=== PATIENT | male | born 1965 | race Caucasian/White ===

== ENCOUNTER 2021-09-21 12:26 | Emergency (ER) | payer OTHER ==
[~2021-09-21] VITALS: Ht 165.1 cm; Wt 68.9 kg
[2021-09-21 12:32] VITALS: BP 163/91
--- NOTE | 2021-09-21 12:41 | NUR ---
PATIENT AMBULATED WITH STEADY GAIT TO BED 11.
--- NOTE | 2021-09-21 13:41 | NUR ---
X-Ray at bedside
--- NOTE | 2021-09-21 13:46 | NUR ---
Obtained lab specimens, walked to lab. Handed to CPT. Verónica
--- NOTE | 2021-09-21 13:46 | NUR ---
Ultrasound at bedside.
[2021-09-21 13:50] LABS: LYMPHOCYTES # (AUTO) 0.9 K/uL (2.0-11.5); MEAN CORPUSCULAR HEMOGLOBIN 29 pg (27-31); MEAN CORPUSCULAR HGB CONC 32 g/dL (33-37); MONOCYTES # (AUTO) 0.4 K/uL (0.8-1.0); NEUTROPHILS # (AUTO) 2.1 K/uL (1.8-7.7); PLATELET COUNT (AUTO) 100 K/uL (140-450)
[2021-09-21 13:56] LABS: EOSINOPHILS % (AUTO) 1.2 % (0.0-4.0); HEMATOCRIT 34.3 % (36-52); HEMOGLOBIN 11.1 g/dL (12.0-18.0); LYMPHOCYTES % (AUTO) 25.7 % (20.5-51.1); MEAN CORPUSCULAR VOLUME 88.6 fL (80-94); MONOCYTES % (AUTO) 10.5 % (1.7-9.3); NEUTROPHILS % (AUTO) 61.6 % (42.2-75.2); RED BLOOD CELL COUNT(AUTO) 3.88 MIL/uL (4.20-6.10); RED CELL DISTRIBUTION WIDTH 15.3 % (11.6-13.7); WHITE BLOOD COUNT (AUTO) 3.5 K/uL (4.8-10.8)
[2021-09-21 14:13] LABS: ALBUMIN 3.6 g/dL (3.4-5.0); ANION GAP 9.6 (8-16); ASPARTATE AMINOTRANSFERASE 43 U/L (15-37); CARBON DIOXIDE 28.9 mmol/L (21-32); CHLORIDE 106 mmol/L (98-107); CREATININE 0.6 mg/dL (0.6-1.3); GFR ARICAN-AMERICAN 179 mL/min (>90); GLUCOSE 129 mg/dL (74-106); POTASSIUM 3.5 mmol/L (3.5-5.1); SODIUM SERUM 141 mmol/L (136-145); TOTAL BILIRUBIN 0.9 mg/dL (0.0-1.0); UREA NITROGEN, BLOOD 3 mg/dL (7-18)
--- NOTE | 2021-09-21 14:18 | NUR ---
56 y/o male bib self due to left thigh pain x 1 month. Patient describes pain as 10/10 with a stabbing feeling. Patient was refered to ER by his PCP due to high blood pressure and possible PE. Patient denies any SOB. Medical History: Denies NKDA
--- NOTE | 2021-09-21 14:35 | NUR ---
56/M PRESENTS TO ED WITH C/O BILATERAL LEG PAIN AND SWELLING X2 MONTHS. PATIENT STATES HE WAS SEEN BY HIS PCP TODAY AND STATES HE WAS REFERRED TO ED DUE TO HIS BP READING HIGH AND CONCERN FOR POSSIBLE PE. PATIENT C/O LEFT UPPER LEG PAIN UPON ASSESSMENT, DENIES CP, SOB, BP IN TRIAGE 163/91. NO SWELLING, REDNESS OR TENDERNESS NOTED TO BILATERAL LEGS, PATIENT AMBULATORY UPON ARRIVAL TO ED.
[2021-09-21] MEDS ORDERED: NAPR-54 PO (14:46)
--- NOTE | 2021-09-21 16:55 | NUR ---
Patient discharged with v/s stable. Written and verbal after care instructions given. Patient alert, oriented and verbalized understanding of instructions. Ambulatory with steady gait. All questions addressed prior to discharge. ID band removed. Patient advised to follow up with PMD. Rx of Naproxen given. Opportunity to ask questions provided and answered. Work note handed to patient.
--- NOTE | 2021-09-21 16:56 | NUR ---
The patient's care was reviewed and supervised by Nevin Villegas RN.
== END 2021-09-21 16:55 | disposition home or self-care (01) ==
LOC: MED 12:26
DX: M79.605 Pain in left leg (principal); M79.10 Myalgia, unspecified site; E11.9 Type 2 diabetes mellitus without complications
CPT/HCPCS: 36415; 71045; 73552; 80053; 84484; 85025; 93005; 93971; 99285; Q0092